=== PATIENT | male | born 1995 | race Caucasian/White ===

== ENCOUNTER 2020-06-23 10:37 | Emergency (ER) | payer OTHER, SELFPAY ==
--- NOTE | ~2020-06-23 | XR_ITS ---
EXAMINATION: XR femur LT min 2V DATE: 06/23/2020 11:49 INDICATION: Left thigh injury. TECHNIQUE: 2 views of left femur on 5 radiographs were obtained. COMPARISON: None. FINDINGS: Bone alignment is normal. No fracture. Joint spaces are well maintained. There is no knee j oint effusion. IMPRESSION: 1. Normal left femur. Reviewed, dictated and finalized at location A. IMPRESSION: 1. Normal left femur.
[2020-06-23 10:46] VITALS: BP 136/83; PULSE 109; RESP 20; TEMP 36.6; O2SAT 98
[2020-06-23] MEDS: IBUPROFEN 600 MG TABLET PO (11:05)
--- NOTE | 2020-06-23 11:12 | PC.NURSE ---
PT TO RADIOLOGY AT THIS TIME.
--- NOTE | 2020-06-23 11:33 | ED.GENADULT ---
HPI - General Adult General Chief complaint: Extremity Injury, Lower Stated complaint: Left quad pain Time Seen by Provider: 06/23/20 10:46 Source: patient Mode of arrival: ambulatory Limitations: no limitations History of Present Illness HPI narrative: Patient is a 25-year-old male who presents with left thigh pain was doing some physical training when he was sprinting and felt a pop in the left anterior thigh has since had moderate aching pain in this location worse with weightbearing and activity denies other injury trauma or similar occurrence in the past patient on arrival does not appear uncomfortable has not taken anything for his symptoms Related Data Home Medications Medication Instructions Recorded Confirmed loratadine [Claritin] mg 06/23/20 Allergies Allergy/AdvReac Type Severity Reaction Status Date / Time No Known Allergies Allergy Verified 06/23/20 10:50 Review of Systems Review of Systems: All systems reviewed & are unremarkable except as noted in HPI and below PMFSH Social History Social History (Updated 06/23/20 @ 11:33 by Pérez Toth PA-C) Smoking status: Never smoker Exam Narrative: Exam Narrative: GENERAL: Well-appearing, well-nourished, and in no acute distress. HEAD: Normocephalic, atraumatic. EYES: PERRLA and EOMI. ENT: Nares clear, no rhinorrhea or epistaxis. Mucous membranes moist. EXTREMITIES: Normal range of motion. No edema. Tenderness of the anterior left thigh no deformity noted. No tenderness of the knee or deformity SKIN: Warm, dry, no rash. NEURO: No focal deficits. Alert and oriented x3. Cranial nerves II through XII grossly intact neurovascularly intact. PSYCH: Normal mood and affect. Course Course Emergency Course: Patient in the room in no distress with likely internal derangement of the left lower extremity secondary to ligamentous injury patient will be given crutches Macario wrap with limited weightbearing and orthopedic referral felt appropriate for outpatient reevaluation Vital Signs Vital signs: Vital Signs Temperature 97.9 F 06/23/20 10:46 Pulse Rate 109 H 06/23/20 10:46 Respiratory Rate 06/23/20 10:46 Blood Pressure 136/83 06/23/20 10:46 Pulse Oximetry 98 06/23/20 10:46 Temperature 97.9 F 06/23/20 10:46 Pulse Rate 109 H 06/23/20 10:46 Respiratory Rate 20 06/23/20 10:46 Blood Pressure 136/83 06/23/20 10:46 Pulse Oximetry 98 06/23/20 10:46 Medical Decision Making MDM Narrative Medical decision making narrative: Patients injury or pain is consistent with musculoskeletal etiology. No signs of neurological or vascular compromise on exam. Compartments and tisues are soft without signs of compartment syndrome. Pain is felt appropriate for further evaluation on an outpatient basis. Vital Signs Vital Signs: Vital Signs Temperature 97.9 F 06/23/20 10:46 Pulse Rate 109 H 06/23/20 10:46 Respiratory Rate 20 06/23/20 10:46 Blood Pressure 136/83 06/23/20 10:46 Pulse Oximetry 98 06/23/20 10:46 Temperature 97.9 F 06/23/20 10:46 Pulse Rate 109 H 06/23/20 10:46 Respiratory Rate 20 06/23/20 10:46 Blood Pressure 136/83 06/23/20 10:46 Pulse Oximetry 98 06/23/20 10:46 Discharge Plan Discharge Clinical Impression: Injury of thigh, left Patient Disposition: Home, Self-Care Condition: Stable Instructions: Antibiotic Form, Leg Pain (ED) Additional Instructions: Wear brace and use crutches. No weight on the affected leg until able to bear weight without pain. Ice and elevate extremity. Pain medication as needed and directed. Follow up with your doctor for further care in the next 5 to 7 days. Return if symptoms worsen or concerns or any increase in redness swelling pain fever over 100.5 or any loss of feeling or function in the extremity Prescriptions: New ibuprofen [IBU] 600 mg tablet 600 mg PO QID PRN (Reason: fever or pain) Qty: 10 RF: 0 No Action loratadine [Cla
[2020-06-23] MEDS: diazePAM (*CRX) 5 MG TABLET PO (12:03)
[2020-06-23 12:31] VITALS: BP 118/75; PULSE 68; RESP 16; O2SAT 100
== END 2020-06-23 12:32 | disposition home or self-care (01) ==
PROVIDERS: Emergency Provider Emergency Medicine
DX: S79.922A Unspecified injury of left thigh, initial encounter (principal); X50.9XXA Other and unspecified overexertion or strenuous movements or postures, initial encounter; Y93.02 Activity, running
CPT/HCPCS: 73552; 99283; A9270

== ENCOUNTER 2020-07-12 13:38 | Outpatient (CLI) | payer OTHER, SELFPAY ==
--- NOTE | ~2020-07-12 | MR_ITS ---
EXAMINATION: MR femur LT wo con DATE: 07/12/2020 15:01 INDICATION: Left thigh pain. TECHNIQUE: Magnetic resonance imaging (MRI) of the left femur was performed without intravenous contr ast. Sequences included axial, coronal, and sagittal T1-weighted FSE and STIR FSE. COMPARISON: Left femur radiographs 06/23/2020 FINDINGS: Bone alignment is normal. No fracture. There is a partial tear of left rectus femoris muscl e at the proximal myotendinous junction with edema and small hematoma. The other muscles are normal. IMPRESSION: 1. Grade 2 strain of left rectus femoris muscle. Reviewed, dictated and finalized at location A. [employer] SERVICE MANAGER
== END 2020-07-12 13:39 | disposition home or self-care (01) ==
PROVIDERS: Visit Provider Orthopaedic Surgery
DX: S76.312A Strain of muscle, fascia and tendon of the posterior muscle group at thigh level, left thigh, initial encounter (principal)
CPT/HCPCS: 73721

== ENCOUNTER → 2024-03-22 15:13 | Outpatient (REF) | payer OTHER, SELFPAY | LOC: ANHLAB 15:13 | PROVIDERS: Visit Provider Plastic Surgery | DX: L72.3 Sebaceous cyst (principal) | CPT/HCPCS: 88304; 88305 ==

== ENCOUNTER 2024-08-11 11:38 | Emergency (ER) | payer OTHER, SELFPAY ==
[2024-08-11 11:48] VITALS: BP 155/107; PULSE 115; RESP 16; TEMP 36.6; O2SAT 99
--- NOTE | 2024-08-11 12:04 | ED_ITS ---
HPI - URI/Sore Throat General Chief Complaint: Upper Respiratory Infection Stated Complaint: Sinus Infection Symptoms History of Present Illness HPI Narrative: 29-year-old male presented for complaint of nasal congestion and sinus pressure. onset 2 weeks, stated it improved for a few days and then returned even worse over the last few days. Using Afrin nasal spray, Mucinex, Sudafed. Denies cough, shortness of breath, wheezing, nausea, vomiting, diarrhea or fever. Related Data Allergies Allergy/AdvReac Type Severity Reaction Status Date / Time No Known Allergies Allergy Verified 08/11/24 12:07 Review of Systems Review of Systems: CONSTITUTIONAL: Denies body aches, fever, chills, or sweats. EYES: Denies visual changes, redness, or discharge. ENT: Reports rhinorrhea, congestion, otalgia. CARDIOVASCULAR: Denies chest pain, palpitations, or edema. RESPIRATORY: Denies dyspnea. GASTROINTESTINAL: Denies abdominal pain, nausea, vomiting, or diarrhea. SKIN: Denies rash, itching, or wounds. MUSCULOSKELETAL: Denies back pain, joint pain, or myalgia. NEUROLOGIC: Denies headache PMFSH Past Medical History Medical History Seasonal allergies SLAP lesion of right shoulder (~2015) Surgical History Surgical History History of shoulder surgery right shoulder labral repair-December 2015 Family History Family History Other Hypertension Social History Social History Smoking status: Never smoker Alcohol intake: current Exam Narrative: GENERAL: well-appearing, no acute distress. EYES: conjunctivae clear ENT: Mucous membranes moist. Nasal congestion noted TM bilaterally unable to visualize due to excess cerumen; no tragal tenderness. Oropharynx mildly erythematous without lesions. Tonsils not enlarged and without exudate. No drooling, no hoarseness, no trismus, uvula midline. No tripod positioning, hot potato voice, or soft palate swelling. NECK: Supple. No lymphadenopathy CHEST: Clear to auscultation, breath sounds equal. No respiratory distress, speaks in full sentences. HEART: Regular rate and rhythm. No murmur heard. SKIN: Warm, dry, no rash. NEURO: Alert and oriented x3. Course Course Emergency Course: Patient is aware of diagnosis, understands and agrees to treatment plan. Anticipatory guidance given. Patient agrees to follow-up as directed and is aware of reasons to seek care at the emergency department. Portions of this record may have been created with voice recognition software Level of Care: Express Care Visit Vital Signs Vital signs: Vital Signs Temperature 97.8 F 08/11/24 11:48 Pulse Rate 115 H 08/11/24 11:48 Respiratory Rate 16 08/11/24 11:48 Blood Pressure 155/107 H 08/11/24 11:48 Pulse Oximetry 99 08/11/24 11:48 Temperature 97.8 F 08/11/24 11:48 Pulse Rate 115 H 08/11/24 11:48 Respiratory Rate 16 08/11/24 11:48 Blood Pressure 155/107 H 08/11/24 11:48 Pulse Oximetry 99 08/11/24 11:48 MDM - URI/Sore Throat MDM Narrative Medical decision making narrative: Discussed physical exam findings consistent with sinusitis.Advise supportive treatments. Patient is appropriate for outpatient treatment and follow-up. Differential Diagnosis Differential diagnosis: Likely upper respiratory infection, viral infection and pharyngitis Discharge Plan Discharge Clinical Impression: Sinusitis Qualifiers: Sinusitis location: unspecified location Chronicity: acute Recurrence: non- recurrent Qualified Code(s): J01.90 - Acute sinusitis, unspecified Patient Disposition: Home, Self-Care Condition: Stable Instructions: Antibiotic Form, Sinusitis (ED) Additional Instructions: Take antibiotic as directed Recommend Flonase spray and Zyrtec (or Claritin/Linda) over the counter Cough syrup may cause drowsiness; avoid driving or take it at night time. Tylenol 1000mg every 8 hours as needed for pain Symptomatic treatment includes: rest, fluids, and increase humidity of the air at home. Follow up with your primary care provider in 1 week. Go to the ER for worsening symptoms or concerns. Prescriptions: New amoxicillin-pot clavulanate 875-125 mg tablet 1 tablet PO Q12H 7 Days Qty: 14 0RF Follow-up/Referrals: PHYSICIAN,HARNESS CUTTER [Primary Care Provider] - Time of Disposition: 12:08
== END 2024-08-11 12:11 | disposition home or self-care (01) ==
PROVIDERS: Emergency Provider Nurse Practitioner Family
DX: J01.90 Acute sinusitis, unspecified (principal)
CPT/HCPCS: 99213; G0463